=== PATIENT | female | born 1975 | race Caucasian/White ===

== ENCOUNTER 2018-04-10 21:03 | Emergency (ER) | payer OTHER ==
[~2018-04-10] VITALS: Ht 165.1 cm; Wt 64.9 kg
[2018-04-10 21:30] VITALS: BP_SYST 116
--- NOTE | 2018-04-10 21:30 | NUR ---
Pt placed to ER bed 4 with c/o non-productive coughing since Wednesday, worse today. BBS clear and respirations even and non-labored. Hx of Asthma with inhaler use.
--- NOTE | 2018-04-10 21:50 | NUR ---
Dr. Melendez at bedside.
[2018-04-10 22:20] VITALS: BP_SYST 118
--- NOTE | 2018-04-10 22:20 | NUR ---
Patient given written and verbal discharge instructions and verbalizes understanding. ER MD discussed with patient the results and treatment provided. Patient in stable condition. ID arm band removed. Rx of Prednison and Promethazine DM given. Patient educated on pain management and to follow up with PMD. Pain Scale 0/10. Opportunity for questions provided and answered. Medication side effect fact sheet provided. Instructed pt to not drive or make important decisions after taking Promethazine DM r/t sedative properties. Verbalizes understanding.
== END 2018-04-10 22:20 | disposition home or self-care (01) ==
LOC: SED 21:03
DX: J06.9 Acute upper respiratory infection, unspecified (principal); J45.909 Unspecified asthma, uncomplicated
CPT/HCPCS: 99283